=== PATIENT | male | born 1985 | race Caucasian/White ===

== ENCOUNTER 2022-02-17 22:35 | Emergency (ER) | payer BC ==
[~2022-02-17] VITALS: Ht 182.9 cm; Wt 73.5 kg
[2022-02-17 22:49] VITALS: BP 132/84
[2022-02-17] MEDS ORDERED: LIDOCAINE 0.5% HCL 50 ML VIAL IJ ONE (23:30)
[2022-02-17] MEDS ORDERED: TDAP [DIPH/PERTUSSIS/TET] 0.5 ML VIAL IM ONE (23:30)
[2022-02-18] MEDS ORDERED: TDAP [DIPH/PERTUSSIS/TET] 0.5 ML VIAL IM ONE (00:10)
[2022-02-18] MEDS ORDERED: TRANEXAMIC ACID 1,000 MG/10 ML VIAL ONE (00:57)
[2022-02-18] MEDS ORDERED: TRANEXAMIC ACID 1,000 MG/10 ML VIAL IR ONE (01:00)
== END 2022-02-18 01:35 | disposition home or self-care (01) ==
LOC: ER 22:47
DX: S61.210A Laceration without foreign body of right index finger without damage to nail, initial encounter (principal); W26.8XXA Contact with other sharp object(s), not elsewhere classified, initial encounter; Y93.89 Activity, other specified; Y92.89 Other specified places as the place of occurrence of the external cause; Y99.0 Civilian activity done for income or pay
CPT/HCPCS: 73130-TC; 90715